=== PATIENT | female | born 1990 | race Caucasian/White ===

== ENCOUNTER 2017-09-06 08:30 | Emergency (ER) | payer MEDICAID, SELFPAY ==
[2017-09-06 08:32] VITALS: BP 120/71; PULSE 99; RESP 17; TEMP 36.9; O2SAT 98; BMI 30.7
--- NOTE | 2017-09-06 08:43 | CT_ITS ---
STUDY: CT ABDOMEN AND PELVIS WITHOUT CONTRAST REASON FOR EXAM: Female, 27 years old. Right upper quadrant pain. RADIATION DOSAGE (If Supplied By Facility): CTDIvol = ( 10.25 ) mGy, DLP = ( 532.52 ) mGycm TECHNIQUE: Transaxial images were obtained from the dome of the diaphragm to the symphysis pubis without oral contrast, and without intravenous contrast. Sagittal and coronal images were reconstructed. Individualized dose optimization techniques were used for this CT. COMPARISON: None. FINDINGS: The visualized lung bases are unremarkable. The visualized portions of the heart are within normal limits. Normal liver. Dependent increased layering density in the gallbladder raises question of sludge. Normal spleen. Normal pancreas. Normal bilateral adrenal glands. Normal right kidney. Normal left kidney. No hydronephrosis. The stomach is filled with undigested food stuffs. Normal small intestine. Normal colon. The appendix is visualized and appears normal. Normal abdominal aorta. Normal inferior vena cava. Normal retroperitoneum. Normal urinary bladder. There is a T-shaped intrauterine device in the endometrial cavity of the normal-sized retroverted uterus. Mild heterogeneity in the adnexa consistent with normal follicular cysts. There is a small umbilical hernia containing fat. There are mild multilevel degenerative changes of the visualized spine. Degenerative sclerosis seen along the inferior right sacroiliac joint. CT/Abdomen/Pelvis without Cont IMPRESSION: 1. Question of sludge in the gallbladder. If suspicious, this can be further characterized with ultrasound. No sign of cholecystitis or overt bile duct obstruction. 2. The bowel is unremarkable without sign of obstruction. The appendix is normal. 3. No hydronephrosis. 4. T-shaped IUD in the endometrial cavity of the normal size, retroverted uterus. Unremarkable ovaries. 5. Small, fat-containing umbilical hernia. Electronically Signed: Eleazar Sommer MD at 10:33 EST , Service support ,
--- NOTE | 2017-09-06 08:50 | ED.VISSUMM ---
- ER Visit Summary Date of Service: 09/06/17 Chief Complaint: [] Abdominal pain for a few days 3 months History of Present Illness: The patient is a 27 F [] today began having upper abdominal pain just after breakfast it resolved spontaneously, and again after having a salad for lunch she had upper abdominal pain that radiated to her right subcostal margin. This morning after eating a small peanut butter sandwich she again experienced immediate onset of upper abdominal pain causing her to vomit and she came in for evaluation. The pain is now resolved. It usually resolved after short period of time. She has no history of ulcer, hepatobiliary disorder or any GI elements. Her and delivery were uncomplicated she has no history of CO PE or DVT she denies chest pain or shortness of breath leg swelling she basically is active and when she is not having pain able to go about her normal activities without any difficulty of any kind of, the patient does report she has had this type of pain in the past very infrequently Physical Examination: [] Signs are normal she is resting cupping the bed she assures me she has no pain she is here with her and her 3-month-old child her HEENT neck exam normal lungs clear heart tones normal abdomen soft nontender she points to the epigastric area indicates the pain radiates around her right subcostal margin when she gets it but she has no pain now, but basically aggressive palpation of her abdomen shaking her abdomen reveals no pain her extremities are normal without signs clubbing or edema neurologic she is awake moving all 4 Test Results: [] Emergency Department Course and Treatment: [] She indicates the symptoms are related to eating she does not really have the pain when she does not eat, today the issue was after eating a small amount of food she began vomiting and she came in for evaluation she again has no real history there is nothing on physical exam or history to suggest CO PE DVT, given all the above a comprehensive evaluation will be pursued Labs are generally unremarkable see those reports except the hepatic panel shows slight elevation of liver enzymes, CT abdomen shows likely sludge in the gallbladder nothing else acute CBC unremarkable,, see the full lab panel Sent for ultrasound of the abdomen per radiology there appears to be's gallstones and sludge in the gallbladder there is no signs of acute cholecystitis on imaging or common bile duct stone obstruction or dilatation, see those reports, the patient has taking p.o. liquids here Serum viral hepatitis screen been sent it is not a stat return patient instructed to have that checked by her follow-up physicians All the test results to her the concept of biliary colic cholecystitis etc. 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 It may contain incorrect words, spelling, and punctuation that were not noted in review of the chart prior to signing ED Disposition - Plan for ED Patient: Chief Complaint: Abd Pain Instructions: ED Abdominal Pain Gallstone Poss Referrals: Tao Doyle MD [STAFF PHYSICIAN] - Pete Branham MD [STAFF PHYSICIAN] - Care Physician,No Primary [Primary Care Provider] -
--- NOTE | 2017-09-06 08:53 | ED.DCSUM_ITS ---
- ER Visit Summary Date of Service: 09/06/17 Chief Complaint: [] Abdominal pain for a few days 3 months History of Present Illness: The patient is a 27 F [] today began having upper abdominal pain just after breakfast it resolved spontaneously, and again after having a salad for lunch she had upper abdominal pain that radiated to her right subcostal margin. This morning after eating a small peanut butter sandwich she again experienced immediate onset of upper abdominal pain causing her to vomit and she came in for evaluation. The pain is now resolved. It usually resolved after short period of time. She has no history of ulcer, hepatobiliary disorder or any GI elements. Her and delivery were uncomplicated she has no history of NV PE or DVT she denies chest pain or shortness of breath leg swelling she basically is active and when she is not having pain able to go about her normal activities without any difficulty of any kind of, the patient does report she has had this type of pain in the past very infrequently Physical Examination: [] Signs are normal she is resting cupping the bed she assures me she has no pain she is here with her and her 3-month-old child her HEENT neck exam normal lungs clear heart tones normal abdomen soft nontender she points to the epigastric area indicates the pain radiates around her right subcostal margin when she gets it but she has no pain now, but basically aggressive palpation of her abdomen shaking her abdomen reveals no pain her extremities are normal without signs clubbing or edema neurologic she is awake moving all 4 Test Results: [] Emergency Department Course and Treatment: [] She indicates the symptoms are related to eating she does not really have the pain when she does not eat, today the issue was after eating a small amount of food she began vomiting and she came in for evaluation she again has no real history there is nothing on physical exam or history to suggest NV PE DVT, given all the above a comprehensive evaluation will be pursued Labs are generally unremarkable see those reports except the hepatic panel shows slight elevation of liver enzymes, CT abdomen shows likely sludge in the gallbladder nothing else acute CBC unremarkable,, see the full lab panel Sent for ultrasound of the abdomen per radiology there appears to be's gallstones and sludge in the gallbladder there is no signs of acute cholecystitis on imaging or common bile duct stone obstruction or dilatation, see those reports, the patient has taking p.o. liquids here Serum viral hepatitis screen been sent it is not a stat return patient instructed to have that checked by her follow-up physicians All the test results to her the concept of biliary colic cholecystitis etc. 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 It may contain incorrect words, spelling, and punctuation that were not noted in review of the chart prior to signing ED Disposition - Plan for ED Patient: Chief Complaint: Abd Pain Instructions: ED Abdominal Pain Gallstone Poss Referrals: Tao Doyle MD [STAFF PHYSICIAN] - Pete Branham MD [STAFF PHYSICIAN] - Care Physician,No Primary [Primary Care Provider] -
[2017-09-06] MEDS: 0.9% Normal Saline 1,000 ML 125 ML IV (08:58)
[2017-09-06 09:13] LABS: Absolute Lymphocyte Count 1.09 X10^3/ul (0.83-4.51); Absolute Neutrophil Count 3.6 X10^3/uL (2.0-7.7); Basophil# 0.05 X10^3/uL; Eosinophil# 0.06 X10^3/uL; Eosinophils% 1.2 % (0-5); Hematocrit 40.2 % (37-47); Hemoglobin 13.9 g/dl (12.0-15.0); Lymphocyte # 1.09 X10^3/ul (4.0); Lymphocyte % 21.1 % (19-41); Mean Corp Hgb Conc 34.6 g/gl (32-36); Mean Corpuscular Hgb 31.2 pg (27.0-32.0); Mean Corpuscular Volume 90.3 fL (81-99); Mean Platelet Vol. 10.7 fl (6.2-12.0); Monocyte# 0.33 X10^3/uL; Monocyte% 6.4 % (0-10); Neutrophil # 3.63 X10^3/uL (2.7-7.7); Neutrophil % 70.1 % (47-70); Platelet Count 294 K/mm3 (150-450); RBC Distribution Width CV 12.2 % (11.6-14.6); RBC Distribution Width SD 39.5 fl (35.1-43.9); Red Blood Count 4.45 M/mm3 (4.2-5.4); White Blood Count 5.2 K/mm3 (4.4-11.0)
[2017-09-06 09:14] LABS: POSITIVE COUNT NO; POSITIVE DIFFERENTIAL NO; POSITIVE MORPHOLOGY NO
[2017-09-06 09:21] LABS: AST(SGOT) 143 U/L (15-37); Alanine Aminotransfer ALT/SGPT 192 U/L (13-56); Alkaline Phosphatase 166 U/L (45-117); Anion Gap 9 (5-15); BUN 17 mg/dL (7-18); BUN/Creat Ratio 16.5 RATIO (10-20); Bilirubin, Direct 0.34 mg/dL (0.00-0.30); Calcium,Total 9.3 mg/dL (8.5-10.1); Chloride 103 mmol/L (98-107); Creatinine, Serum 1.03 mg/dL (0.55-1.02); EST Glomerular Filtration Rate 69 mL/min (>60); Est Glom Filt Rate - Afr Amer 83 mL/min (>60); Estimated Creatinine Clearance 77.48 ml/min; Globulin 4.6 g/dL (2.2-4.2); Glucose 118 mg/dL (74-106); Lipase 217 U/L (73-393); Potassium 3.7 mmol/L (3.5-5.1); Protein, Total 8.6 g/dL (6.4-8.2); Sodium Level 138 mmol/L (136-145)
[2017-09-06 09:24] LABS: Pregnancy, Serum, hCG Quali. NEGATIVE Negative (0-9 Nonpreg)
[2017-09-06 11:00] LABS: Bacteria 0 SEEN /hpf (None Seen); Mucous, Urine 0 SEEN /hpf (<or=2+); Squamous Epithelial Cells - UA 0 SEEN /hpf (5-10)
[2017-09-06 11:05] LABS: Color, Urine Yellow (Yellow); Glucose, Dipstick Normal (Normal); Ketone-Dipstick Negative (Negative); Leukocyte Esterase-Dipstick 100 /ul (Negative); Nitrite-Dipstick Negative (Negative); Occult Blood-Urine 10 /ul (Negative); Protein-Dipstick Negative (Negative); Urine Bilirubin Dipstick Negative (Negative); Urine Clarity Clear (Clear); Urine Urobilinogen Normal (Normal)
[2017-09-06 11:12] LABS: Red Blood Cells-Urine 0-5 SEEN /hpf (0-5); White Blood Cells 0-5 SEEN /hpf (0-5)
--- NOTE | 2017-09-06 11:38 | US_ITS ---
STUDY: ABDOMINAL ULTRASOUND - RIGHT UPPER QUADRANT REASON FOR VISIT: Female, 27 years old. Right upper quadrant pain. TECHNIQUE: Ultrasound evaluation of the right upper quadrant was performed with real-time and static rucker-scale imaging. TECHNICAL QUALITY: Adequate. Examination limited by bowel gas. COMPARISON: CT abdomen and pelvis 0929 hours. FINDINGS: Liver: The liver measures 14.0-18.0 cm, depending on point of reference There is normal echogenicity of the liver. The bile ducts are within normal limits. There is hepatic color flow. The direction of portal flow is hepatopetal. There is no demonstrated mass lesion. Gallbladder: Normal distended gallbladder. The gallbladder wall measures 1.3 mm. There is a negative sonographic Barrett's sign. There is no pericholecystic fluid. There are multiple echogenic structures within the gallbladder, consistent with multiple gallstones. Additional echogenic sludge is also present. Common Bile Duct (C.B.D.): The common bile duct measures 4.6 mm. Pancreas: Normal size of the head, body and tail of the pancreas. There is normal echogenicity of the pancreas. There is no demonstrated pancreatic mass or cyst. Right Kidney: Normal size of the right kidney. The right kidney measures 10.9 x 5.3 x 3.8 cm. Normal renal cortex. The right cortex measures 1.3 cm. There is no demonstrated renal mass or cyst. There is no right hydronephrosis. US/Gallbladder IMPRESSION: Numerous small gallstones as well as sludge in the gallbladder lumen. No sign of acute cholecystitis or bile duct obstruction. Electronically Signed: Eleazar Sommer MD at 14:19 EST , Service support ,
[2017-09-06 11:50] VITALS: BP 120/85; PULSE 73; RESP 16; O2SAT 97
--- NOTE | 2017-09-06 14:37 | ED.DEP ---
ED Disposition - Plan for ED Patient: Chief Complaint: Abd Pain Instructions: ED Abdominal Pain Gallstone Poss Referrals: Care Physician,No Primary [Primary Care Provider] - Pete Branham MD [STAFF PHYSICIAN] - Tao Doyle MD [STAFF PHYSICIAN] -
[2017-09-06 15:03] VITALS: BP 110/73; PULSE 87; RESP 18; O2SAT 100
[2017-09-07 08:08] LABS: HEPATITIS B SURFACE AG Negative (Negative); Hepatitis A IgM Antibody Negative (Negative); Hepatitis B Core AB IgM Negative (Negative)
[2017-09-07 11:13] LABS: Hep C Antibodies 0.1 s/co ratio (0.0-0.9)
== END 2017-09-06 15:04 | disposition home or self-care (01) ==
LOC: ED 09:06
PROVIDERS: Emergency Provider Emergency Medicine
DX: K80.80 Other cholelithiasis without obstruction (principal)
CPT/HCPCS: 74176; 76705; 80048; 80074; 80076; 81001; 83690; 84703; 85025; 96360; 96361; 99284; J7030; A4216; J2405

== ENCOUNTER 2017-09-12 10:47 | Day surgery (SDC) | payer MEDICAID, SELFPAY ==
[2017-09-12] VITALS (9 sets, daily range): BP systolic 101–112; BP diastolic 64–76; PULSE 51–73; RESP 14–20; TEMP 36.1–36.7; O2SAT 94–100; BMI 29.8
--- NOTE | 2017-09-12 | GALL_PTH ---
PATIENT: KEENA OLIVERA LOC: [facility] [place] U#:[id number] AGE/SX: 27/F ROOM: RE09/12/[address]: Dr. Tao Doyle MD : 1990 BED: DIS: 09/12/2017 SPEC #: [id number] RECD: 09/12/17 15:10 STATUS: [place] WILLIS #: [id number] [place]: 09/12/17 00:[address]: Tao Doyle DEPT: SURGICAL PATHOLOGY RECD BY: Tra Olmstead ENTERED: 09/12/17 15:10 SP TYPE: NELLIE VÁZQUEZ DR: No Primary Care Phys Tissues: Gallbladder, NOS Procedures: Surgery Specimen Level III HEADER OPERATION: Laparoscopic cholecystectomy with intraoperative cholangiogram PRE-OP DIAGNOSIS: Calculus of gallbladder with chronic cholecystitis TISSUE SUBMITTED: Gallbladder MICROSCOPIC DIAGNOSIS Gallbladder: Mild chronic cholecystitis and cholelithiasis. SJ:terrence 09/15/17 MICROSCOPIC DESCRIPTION Slides are reviewed. GROSS DESCRIPTION Received is one container labeled with the patient's name and designated gallbladder. The specimen consists of a gallbladder measuring 8 cm in length and up to 2.5 cm in diameter. The external surface is pink-singer, smooth and glistening for the most part. Focally it is granular, hemorrhagic and contains cautery artifact. The gallbladder contains green-yellow mucoid bile and multiple yellow-orange mulberry stones measuring in aggregate 3.5 x 3 x 0.5 cm and 0.1 to 0.3 cm in greatest dimension. The mucosa is bile-stained and without any mass lesions. The gallbladder wall measures up to 0.2 cm in thickness. Special Effects Person sections from the gallbladder and the cystic duct are submitted in one cassette. / SJ:terrence 09/12/17 TC:3 CPT: 77082
--- NOTE | 2017-09-12 10:56 | EKG12_ITS ---
Test Reason : PREOP Blood Pressure : / mmHG Vent. Rate : 068 BPM Atrial Rate : 068 BPM P-R Int : 174 ms QRS Dur : 094 ms QT Int : 404 ms P-R-T Axes : 057 069 053 degrees QTc Int : 429 ms Normal sinus rhythm Normal ECG No previous ECGs available Confirmed by BOLA CLEANING ([id number]), video editor TOMEKA VARGAS ([id number]) on 09/16/2017 1:53:49 PM Referred By: Bola Doyle Confirmed By:BOLA CLEANING
[2017-09-12 11:14] LABS: Internal QC Validated? YES +Cl - CLEAR BKGD
[2017-09-12 11:17] LABS: Pregnancy, Urine Negative Negative
[2017-09-12] MEDS: Cefazolin 2 GM in 0.9% Normal Saline 100 ML IV (12:43)
--- NOTE | 2017-09-12 12:48 | DCINST_ITS ---
Discharge Diet: Light diet - advance as tolerated Discharge Activity: May Not Drive - for 2-3 days or while taking narcotic pain medications., - - Do not drive, work heavy equipment or sign legal documents for 24 hours. May shower in (days): 1 - with the bandage in place. Additional Activity Instructions:: Pain medication may cause nausea. You should typically eat light foods as you take your pain medications. Pain medication may also cause constipation. If this is a problem for you, please discuss with your doctor. Call your doctor if your incision/area has: Continuous Slow Oozing, Sudden Increased Bleeding, Increased Pain/ Swelling, Increased Redness, Foul Smelling Discharge Call your doctor if you observe: Fever of 101 or Higher Suture Line Care: Avoid Pulling/Pushing, Avoid Pinching/Bending Additional Dressing/Incision Instructions:: Leave operative bandaids on for 2 days. When you remove dressing, leave Steri-Strips on until your follow-up appointment, or until the Steri-Strips fall off on their own. Allergies/Adverse Reactions: Allergies No Known Allergies Allergy (Verified 09/11/17 14:10) Medications to take at Discharge Vits [Prenatabs FA] 1 tab PO DAILY 04/18/15 Oxycodone HCl/Acetaminophen [Percocet 5/325] 1 - 2 tab PO Q4H PRN PRN 4 Days # 30 tab 09/12/17 The following prescriptions were given: Oxycodone HCl/Acetaminophen [Percocet 5/325] 1 - 2 tab PO Q4H PRN PRN 4 Days # 30 tab PRN Reason: Pain Primary Care Physician: Care Physician,No Primary [Primary Care Provider] - Please Follow Up With: Tao Doyle MD - Please call [phone] to schedule an appointment. When: 7 days after your surgery.
--- NOTE | 2017-09-12 12:48 | PCM.OPRPT ---
Problem List (1) Calculus of gallbladder with acute on chronic cholecystitis without obstruction Status: Acute Report of Operation Date of Procedure: 09/12/17 Pre-Operative Diagnosis: K80.12 calculus of the gallbladder with acute on chronic cholecystitis without obstruction Post-Operative Diagnosis: Same Surgery/Procedure Performed:: 36730 laparoscopic cholecystectomy with intraoperative cholangiograms Type of Anesthesia:: General Anesthesiologist: Perico Nuñez Description of Procedure: Patient was brought into the operating room and placed in the supine position. Under excellent endotracheal intubation the abdomen was sterilely prepped and draped in usual fashion. Local was injected infraumbilically and incision was made and was carried down to the fascia the fascia was grasped with a [place] varies needle was placed inside the abdomen. The abdomen was insufflated 15 torr. A 1012 trocar was placed without difficulty. Patient was placed in the head up and rotated to the left position. Fundus of the gallbladder was grasped retracted in a cephalad direction. Electrocautery was used to take down adhesions. I dissected out the cystic duct. I placed a Hemoclip proximally on the duct and aubrey the duct. A cholangiogram catheter was placed through the skin and a clean gram catheter was placed into the cystic duct and secured with a clip. A cholangiogram was performed showing normal ductal anatomy. I remove the glans gram catheter placed another locking clip on to the cystic duct and ligated the duct. Cystic artery was identified clips were placed proximally and distally and ligated. I deliver the gallbladder from the gallbladder bed with use of electrocautery had no spillage of bile or stones. I placed a specimen a specimen bag and delivered through the umbilical port without difficulty. I remove the trochars under direct visualization good hemostasis was noted I closed the fascia the umbilical port with a figure 8 stitch of 0 Vicryl. Skin incisions were closed with subcuticular stitches of 4-0 Monocryl. Steri-Strips are applied sterile dressings were applied and the patient tolerated the procedure well. - Admit VTE Documentation VTE Present on Admission: No VTE Mechan Device Prophylaxis: SCD's VTE Pharm Prophylaxis ordered?: No Reason prophylaxis not ordered:: Treatment Not Indicated
[2017-09-12] MEDS: Bupivacaine 0.25% 30 ML Vial (12:54)
--- NOTE | 2017-09-12 13:05 | RAD_ITS ---
STUDY: INTRAOPERATIVE CHOLANGIOGRAM. REASON FOR EXAM: Female, 27 years old. Laparoscopic cholecystectomy. FLUOROSCOPY TIME (if supplied): (0:16) minutes/seconds TECHNIQUE: An intraoperative cholangiogram was performed by the surgeon. Imaging was submitted. COMPARISON: None. FINDINGS: The common bile duct is unremarkable. No intraluminal filling defect is seen. There is free flow of contrast into the duodenum. RAD/Cholangiogram/ O R,Initial IMPRESSION: Unremarkable intraoperative cholangiogram. Electronically Signed: Jeramy Workman MD at 14:28 EST Tel [phone], Service support ,
== END 2017-09-12 17:14 | disposition home or self-care (01) ==
LOC: SDC 10:48 → AC 10:49
PROVIDERS: Anesthesiology; Visit Provider Surgery
PROC: (CPT 47610; principal; 2017-09-12 12:45)
DX: K80.12 Calculus of gallbladder with acute and chronic cholecystitis without obstruction (principal); K82.8 Other specified diseases of gallbladder
CPT/HCPCS: 47563; 74300; 76000; 81025; 88304; 93005; J7120; J1610; J2405

== ENCOUNTER → 2018-08-11 17:10 | Outpatient (CLI) | payer MEDICAID, SELFPAY ==
[2017-09-12 11:06] VITALS: BMI 29.8
[2018-08-14 11:41] LABS: HPV Reflexed? NOT INDICATED
--- OUTSIDE RECORDS SUMMARY | 2018-10-13 23:12 | XMS RPT_ITS ---
:1990 Author Organization OHIP Support Name Relationship Address Phone [facility] Unavailable [address] [place] [address] + [place] [address] SHAQUILLE, MICHELLE Unavailable . + [place] [address] UE Unavailable Unavailable Unavailable [facility] Unavailable [address] [place] [address] + [place] [address] SHAQUILLE, MICHELLE Unavailable . + [place] [address] UE Unavailable Unavailable Unavailable [facility] Unavailable [address] [place] [address] + [place] [address] SHAQUILLE, MICHELLE Unavailable Unavailable + UE Unavailable Unavailable Unavailable [facility] Unavailable [address] [place] [address] + [place] [address] SHAQUILLE, MICHELLE Unavailable . + [place] [address] UE Unavailable Unavailable Unavailable [facility] Unavailable [address] [place] [address] ROAD + [place] [address] SHAQUILLE, MICHELLE Unavailable . + [place] [address] UE Unavailable Unavailable Unavailable [facility] Unavailable [address] [place] [address] + [place] [address] SHAQUILLE, MICHELLE Unavailable . + . ., [place] . UE Unavailable Unavailable Unavailable [facility] OLI[facility] Unavailable [address] [place] [address] ROAD + [place] [address] SHAQUILLE, MICHELLE Unavailable . + . ., . . UE Unavailable Unavailable Unavailable Care Team Providers Name Role Phone Natalie Watkins Attending Unavailable Primay Care Physicia, No Primary Care Unavailable Tao Cleaning Attending Unavailable Tao Doyle Referring Unavailable Tao Doyle Attending Unavailable Krystyna Bocanegra PA-C Attending Unavailable Primay Care Physicia, No Referring Unavailable Primay Care Physicia, No Primary Care Unavailable Tao Doyle Attending Unavailable Primay Care Physicia, No Referring Unavailable Primay Care Physicia, No Primary Care Unavailable Gabrielle Espinoza Attending Unavailable Primay Care Physicia, No Primary Care Unavailable Tao Doyle Attending Unavailable Primay Care Physicia, No Primary Care Unavailable Tao Doyle Referring Unavailable PROBLEMS PROBLEMS DATE TYPE CONDITION / CODE ATTENDING STATUS SOURCE 08/11/2018 Unknown Z12.4 - Encounter Natalie Watkins Active Karin for screening for [facility] malignant neoplasm Hospital of cervix / Repository Z12.4(ICD-10) 09/25/2017 Unknown K80.12 - Calculus Tao Doyle Active Karin of gallbladder with [facility] acute and chronic [facility] cholecystitis Repository without obstruction / K80.12(ICD-10) PROCEDURES PROCEDURES No Procedure Records FoundRESULTS RESULTS PAP I-G W/RFX HRHPV Collected: 08/11/2018 Status: F Source: KARIN 1:15 PM [facility] REPOSITORY Order Comment: CYTOLOGY INFORMATION: - CLINICAL INFORMATION: - DATE LMP/MENOPAUSE: 08/08/18/MIRENA LMP - COLLECTION VIAL: Thin Prep Vial - DRAIN TECHNICIAN SOURCE: CERVICAL/ENDOCERVICAL - COLLECTION TECHNIQUE: BRUSH/SPATULA Specimen Comment: [id number] Specimen Comment: Source.............Endocervix Specimen Comment: LMP / Prev Treat...[id number] Specimen Comment: Dates / Results....MIRENA Specimen Comment: No. of containers..01 ThinPrep Vial TYPE CODE TESTS RESULT OUT OF RANGE REFERENCE UNITS LAB L7400.0800 . Normal DIAGN Comment Result Comment: NEGATIVE FOR INTRAEPITHELIAL LESION OR MALIGNANCY. LAB L7400.0900 . Normal ADEQ Comment Result Comment: Satisfactory for evaluation. Endocervical and/or squamous metaplastic cells (endocervical component) are present. LAB L7400.1400 . Normal PERFORM Comment Result Comment: Susan Wolfe, Interface Designer (ASCP) LAB L7400.2575 . Normal TEST METHOD Comment Result Comment: This liquid based ThinPrep(R) pap test was screened with the use of an image guided system. LAB L7400.2600 . Normal . COMM LAB L7400.2700 . Normal PAPSMR Comment Result Comment: The Pap smear is a screening test designed to aid in the detection of premalignant and malignant conditions of the uterine cervix. It is not a diagnostic procedure and should not be used as the sole means of detecting cervical cancer. Both false-positive and false-negative reports do occur. LAB L7400.2800 . Normal HPV RFLX Comment Result Comment: The HPV DNA reflex criteria were not met with this specimen result therefore, no HPV testing was performed. Performed at: - [facility] [id number] Home Health Care Physician: Farida Calvin MD, Phone: [phone] Performed By: #### L7400.0350 #### [facility] (refer to report for specific site) refer to report for address and phone number SURGERY VISIT REPORT Observed: 09/22/2017 Status: F Source: CAB[place]O 3:49 PM [facility] [address] [place] [address] OFFICE VISIT Date of Service: 09/22/17 MR#: [id number] Acct: [id number] Name: JASMIN OLIVERA Rep #: [id number] : 1990 Provider: Krystyna Bocanegra PA-C Age/Sex: 27/F Location: [facility] Status: Signed Intake Intake Visit Reasons: Gall bladder surgery 09/12 DP Chief Complaint: post lance DP 09-12 Pipelines Supervisor Required: No Is patient in pain?: No Allergies No Known Allergies Allergy (Verified 09/22/17 10:42) Medications Vits [Prenatabs FA] 1 tab PO DAILY 04/18/15 [History Confirmed 09/22/17] Is last menstrual period known: No Post menopausal: No Patient : No PFSH Medical History Gallstones (Acute) RUQ pain (Acute) Surgical History S/P laparoscopic cholecystectomy (Acute) Family History Mother Cancer cervical Social History Smoking Status: Never smoker alcohol intake: never HPI HPI HPI: JASMIN OLIVERA, is a 27 F I am following for cholelithiasis. Dr. Doyle performed a laparoscopic cholecystectomy on 09/12/17. Patient tolerated the procedure well. Pathology demonstrated mild chronic cholecystitis and cholelithiasis. Patient denies abdominal pain/discomfort, nausea, vomiting. Her appetite has returned to normal. She is having normal bowel movements. Exam GI Inspection: normal to inspection, incision (c/d/i) Palpation: soft Auscultation: normal bowel sounds Assessment AND Plan Problems 1. Calculus of gallbladder with acute on chronic cholecystitis without obstruction K80.12 Plan - Recommend no lifting greater than 35 pounds for 3 weeks - Follow-up as needed Coding Level of Care Code Global Post Op Diagnoses Calculus of gallbladder with acute on chronic cholecystitis without obstruction K80.12 09/22/17 1549 <Electronically signed by Krystyna Bocanegra PA-C> Date Krystyna Bocanegra PA-C Cosigner Signature: Date (if applicable) CC: 12 LEAD ELECTROCARDIOGRAM Observed: 09/16/2017 Status: F Source: [place] 1:53 PM [facility] REPOSITORY [facility] Cardiovascular Services [address] [place] [address] 12 Lead EKG 09/12/17 1116 MR#: [id number] Acct: [id number] Name: JASMIN LOIVERA Rep #: [id number] : 1990 27 From: Tao Cleaning MD Attending Dr: Tao Doyle MD Status: DEP [facility] Ordering Dr: Perico Nuñez MD Date: 09/12/17 Location: [facility] Sex: F C Admitted: Test Reason : PREOP Blood Pressure : / mmHG Vent. Rate : 068 BPM Atrial Rate : 068 BPM P-R Int : 174 ms QRS Dur : 094 ms QT Int : 404 ms P-R-T Axes : 057 069 053 degrees QTc Int : 429 ms Normal sinus rhythm Normal ECG No previous ECGs available Confirmed by TAO CLEANING ([id number]), material expeditor TOMEKA VARGAS ([id number]) on 09/16/2017 1:53:49 PM Referred By: Tao Doyle Confirmed By:TAO CLEANING 09/16/17 1353 Date Tao Cleaning MD CC: No Primary Care Physician; Perico Nuñez MD Signed OPERATIVE REPORT Observed: 09/12/2017 Status: F Source: [place] 1:30 PM [facility] REPOSITORY [facility] Medical Records Department [address] [place] [address] Operative Report 09/12/17 1248 MR#: [id number] Acct: [id number] Name: JASMIN OLIVERA Rep #: [id number] : 1990 27 From: Tao Doyle MD PCP: Care Physician, No Primary Status: [facility] Y Location: [place] [address] Problem List (1) Calculus of gallbladder with acute on chronic cholecystitis without obstruction Status: Acute Report of Operation Date of Procedure: 09/12/17 Pre-Operative Diagnosis: K80.12 calculus of the gallbladder with acute on chronic cholecystitis without obstruction Post-Operative Diagnosis: Same Surgery/Procedure Performed:: 62248 laparoscopic cholecystectomy with intraoperative cholangiograms Type of Anesthesia:: General Anesthesiologist: Perico Nuñez Description of Procedure: Patient was brought into the operating room and placed in the supine position. Under excellent endotracheal intubation the abdomen was sterilely prepped and draped in usual fashion. Local was injected infraumbilically and incision was made and was carried down to the fascia the fascia was grasped with a Yovany varies needle was placed inside the abdomen. The abdomen was insufflated 15 torr. A 1012 trocar was placed without difficulty. Patient was placed in the head up and rotated to the left position. Fundus of the gallbladder was grasped retracted in a cephalad direction. Electrocautery was used to take down adhesions. I dissected out the cystic duct. I placed a Hemoclip proximally on the duct and aubrey the duct. A cholangiogram catheter was placed through the skin and a clean gram catheter was placed into the cystic duct and secured with a clip. A cholangiogram was performed showing normal ductal anatomy. I remove the glans gram catheter placed another locking clip on to the cystic duct and ligated the duct. Cystic artery was identified clips were placed proximally and distally and ligated. I deliver the gallbladder from the gallbladder bed with use of electrocautery had no spillage of bile or stones. I placed a specimen a specimen bag and delivered through the umbilical port without difficulty. I remove the trochars under direct visualization good hemostasis was noted I closed the fascia the umbilical port with a figure 8 stitch of 0 Vicryl. Skin incisions were closed with subcuticular stitches of 4-0 Monocryl. Steri- Strips are applied sterile dressings were applied and the patient tolerated the procedure well. - Admit VTE Documentation VTE Present on Admission: No VTE Mechan Device Prophylaxis: SCD's VTE Pharm Prophylaxis ordered?: No Reason prophylaxis not ordered:: Treatment Not Indicated 09/12/17 1330 <Electronically signed by Tao Doyle MD> Date Tao Doyle MD CC: No Primary Care Physician; Tao Doyle MD; Natalie Watkins MD Signed DISCHARGE INSTRUCTION Observed: 09/12/2017 Status: F Source: [place] 12:48 PM [facility] REPOSITORY [facility] Medical Records Department [address] [place] [address] Instructions for Home/Discharge Instructions 09/12/17 1247 MR#: [id number] Acct: [id number] Name: JASMIN OLIVERA Rep #: [id number] : 1990 27 From: Tao Doyle MD PCP: Care Physician, No Primary Status: REG [facility] Discharge Diet: Light diet - advance as tolerated Discharge Activity: May Not Drive - for 2-3 days or while taking narcotic pain medications., - - Do not drive, work heavy equipment or sign legal documents for 24 hours. May shower in (days): 1 - with the bandage in place. Additional Activity Instructions:: Pain medication may cause nausea. You should typically eat light foods as you take your pain medications. Pain medication may also cause constipation. If this is a problem for you, please discuss with your doctor. Call your doctor if your incision/area has: Continuous Slow Oozing, Sudden Increased Bleeding, Increased Pain/ Swelling, Increased Redness, Foul Smelling Discharge Call your doctor if you observe: Fever of 101 or Higher Suture Line Care: Avoid Pulling/Pushing, Avoid Pinching/Bending Additional Dressing/Incision Instructions:: Leave operative bandaids on for 2 days. When you remove dressing, leave Steri-Strips on until your follow-up appointment, or until the Steri-Strips fall off on their own. Allergies/Adverse Reactions: Allergies No Known Allergies Allergy (Verified 09/11/17 14:10) Medications to take at Discharge Vits [Prenatabs FA] 1 tab PO DAILY 04/18/15 Oxycodone HCl/Acetaminophen [Percocet 5/325] 1 - 2 tab PO Q4H PRN PRN 4 Days #30 tab 09/12/17 The following prescriptions were given: Oxycodone HCl/Acetaminophen [Percocet 5/325] 1 - 2 tab PO Q4H PRN PRN 4 Days #30 tab PRN Reason: Pain Primary Care Physician: Care Physician,No Primary [Primary Care Provider] - Please Follow Up With: Tao Doyle MD - Please call [phone] to schedule an appointment. When: 7 days after your surgery. 09/12/17 1248 <Electronically signed by Tao Doyle MD> Date Tao Doyle MD CC: No Primary Care Physician CHOLANGIOGRAM/ O Observed: 09/12/2017 Status: F Source: KARIN R,INITIAL 11:29 AM [facility] REPOSITORY [facility] Imaging Services [address] [place] [address] Cholangiogram/ O R,Initial MR#: [id number] Acct: [id number] Name: JASMIN OLIVERA Rep #: [id number] : 1990 F 27 From: Jeramy Workman MD PCP: Care Physician, No Primary Status: [facility] Study: Cholangiogram/ O R,Initial Date of Exam: 09/12/17 Exam# [id number] Ordering Dr: Tao Doyle MD STUDY: INTRAOPERATIVE CHOLANGIOGRAM. REASON FOR EXAM: Female, 27 years old. Laparoscopic cholecystectomy. FLUOROSCOPY TIME (if supplied): (0:16) minutes/seconds TECHNIQUE: An intraoperative cholangiogram was performed by the surgeon. Imaging was submitted. COMPARISON: None. FINDINGS: The common bile duct is unremarkable. No intraluminal filling defect is seen. There is free flow of contrast into the duodenum. RAD/Cholangiogram/ O R,Initial IMPRESSION: Unremarkable intraoperative cholangiogram. Electronically Signed: Jeramy Workman MD at 14:28 EST Tel [phone], Service support , CC: No Primary Care Physician; Tao Doyle MD Graphics Edit Technician: Signed ,URINE Collected: 09/12/2017 Status: F Source: CAB[place]O 12:00 AM [facility] REPOSITORY TYPE CODE TESTS RESULT OUT OF REFERENCE UNITS RANGE LAB L400.8000 Negative Normal HCGUQUAL Negative Result Comment: Very dilute urine specimens, as indicated by a low specific gravity, may not contain bottling equipment sales representative levels of hCG. If is still suspected, a first morning urine specimen should be collected 48 hours later and tested. Performed By: #### L400.7600 #### [facility] [address] [place], [address] GALLBLADDER Observed: 09/12/2017 Status: F Source: CAB[place]O 12:00 AM [facility] REPOSITORY Patient: JASMIN OLIVERA : 1990 (27/) Acct Num: [id number] Phys: Tao Doyle MD Unit Num: [id number] Loc: [facility] Specimen: [id number] Received: 09/12/17 - 1510 Spec Type: GALLBLADDE TISSUES TISSUES: Gallbladder, NOS GROSS DESCRIPTION Received is one container labeled with the patient's name and designated gallbladder. The specimen consists of a gallbladder measuring 8 cm in length and up to 2.5 cm in diameter. The external surface is pink- singer, smooth and glistening for the most part. Focally it is granular, hemorrhagic and contains cautery artifact. The gallbladder contains green-yellow mucoid bile and multiple yellow-orange mulberry stones measuring in aggregate 3.5 x 3 x 0.5 cm and 0.1 to 0.3 cm in greatest dimension. The mucosa is bile- stained and without any mass lesions. The gallbladder wall measures up to 0.2 cm in thickness. Auto Parts Manager sections from the gallbladder and the cystic duct are submitted in one cassette. / AJ:terrence 09/12/17 TC:3 CPT: 80169 HEADER OPERATION: Laparoscopic cholecystectomy with intraoperative cholangiogram PRE-OP DIAGNOSIS: Calculus of gallbladder with chronic cholecystitis TISSUE SUBMITTED: Gallbladder MICROSCOPIC DESCRIPTION Slides are reviewed. MICROSCOPIC DIAGNOSIS Gallbladder: Mild chronic cholecystitis and cholelithiasis. AJ:terrence 09/15/17 Signed Hema Bhatia 09/15/17 <signature on file> Performed By: #### PGALL #### [facility] [address] [place] [address]. [place], [place], [address] SURGERY VISIT REPORT Observed: 09/10/2017 Status: F Source: [place] 2:51 PM [facility] REPOSITORY [facility] [address] [facility] [address] [place] [address] OFFICE VISIT Date of Service: 09/10/17 MR#: [id number] Acct: [id number] Name: JASMIN OLIVERA Rep #: [id number] : 1990 Provider: Tao Doyle MD Age/Sex: 27/F Location: [facility] Status: Signed Intake Vital Signs09/10/17 Height 5 ft 6 in 09/10/17 Weight: 189 lb 09/10/17 Body Mass Index (BMI) 30.4 Intake Visit Reasons: FU ER GALL BLADDERR Pipelines Supervisor Required: No Is patient in pain?: No Allergies No Known Allergies Allergy (Verified 09/10/17 12:57) Medications Vits [Prenatabs FA] 1 tab PO DAILY 04/18/15 [History Confirmed 09/10/17] [facility] Medical History Gallstones (Acute) RUQ pain (Acute) Family History Mother Cancer cervical Social History Smoking Status: Never smoker alcohol intake: never HPI HPI HPI: JASMIN OLIVEAR, is a 27 F who presents to the office today for evaluation of epigastric and right upper quadrant abdominal pain. Patient was seen and was [facility] emergency department on 09/06/2017. She had been noting to have about 3 months history of abdominal pain that got progressively worse over the weekend. Pain is in the epigastric area and radiates into the right upper quadrant. In the emergency department she was worked up noted to have a gallbladder ultrasound which showed gallstones and sludge in the gallbladder no signs of acute cholecystitis or common bile duct obstruction or dilatation. Her laboratory values did show that she had an elevation in her liver function tests in particular her alkaline phosphatase was up to 166 as was her AST and ALT and her total bilirubin was 0.34 we was only slightly elevated her lipase was normal ROS General General: No weight change, appetite, fatigue, colon cancer, breast cancer or weakness HEENT HEENT: No difficulty swallowing, eye injury, eye surgery, swollen glands or hoarseness Endo Endocrine: No thyroid disease, diabetes mellitus, thyroid cancer, Hair loss, heat intolerance or cold intolerance Skin Skin: No rash or changing moles Breast Breast: No left breast lump, right breast lump, nipple discharge, breast pain, abnormal mammogram, abnormal US or breast enlargement Musc Musculoskeletal: No back problems, arthritis, rheumatoid arthritis, gout or joint pain Cardio Cardiovascular: No murmur, pacemaker, heart disease, atrial fibrillation, high blood pressure, heart attack, heart stent, palpitations, shortness of breat with exertion or chest pain Psych Psychiatric: No depression, anxiety or hearing voices Resp Respiratory: No shortness of breath, No sleep apnea, No cough, No COPD, No asthma, No emphysema, No wheezing Gastro Gastrointestinal: Yes abdominal pain, Yes nausea or vomiting, Yes gallbladder problem, No diarrhea, No constipation, No blood in stool, No acid reflux, No hemorrhoids, No ulcers, No black,tarry stools Osmin Hematologic: No blood thinners, No blood disorders, No bleeding, No anemia, No blood clots Neuro Neurologic: No system reviewed and no additional complaints, except as docu, No as per HPI, No abnormal walking, No abnormal hearing, No abnormal movements, No abnormal speech, No behavioral changes, No burning sensations, No confusion, No seizure-like activity, No unsteadiness, No dizziness, No localized weakness, No frequent falls, No headache(s), No lack of coordination, No loss of vision, No memory loss, No numbness, No other visual disturbances, No radiating pain, No restless legs, No sensory deficit, No fainting, No tingling, No tremor(s), No weakness, No other Exam Const General: well developed, no acute distress, well hydrated Orientation: oriented to person, oriented to place, oriented to time [facility] Head: normocephalic, atraumatic Ears: external ears normal Mouth: moist mucous membranes Eyes Sclera: sclerae normal Pupils: normal by confrontation Neck Neck: no lymphadenopathy noted Neck mass: No Thyroid: symmetrical, thyroid normal Chest Chest palpation AND inspection: normal inspection of the chest Breast Palpation: No nipple discharge Resp Effort AND Inspection: normal respiratory effort Auscultation: clear to auscultation bilaterally Percussion: percussion normal Cardio Rate: regular rate Rhythm: regular rhythm Heart Sounds: no murmurs GI Palpation: soft, tender, no masses, no hepatosplenomegaly Auscultation: normal bowel sounds Rectal Exam: other Other: Rectal exam deferred. Extrem General: no clubbing, cyanosis or edema, normal to inspection Assessment AND Plan Problems 1. Calculus of gallbladder with acute on chronic cholecystitis without obstruction K80.12 Plan Reviewed the anatomy with the patient and discussed the procedure: laparoscopic cholecystectomy with possible cholangiograms, possible open. Review risks including but not limited to bleeding, infection, hernia, bile leak, retained gallstones requiring another procedure ERCP- Endoscopic Retrograde Cholangiopancreatography, injury to another organ (bile ducts, common bile duct, small bowel, etc.) and conversion to an open procedure. All questions were answered. Coding Level of Care Code Off vis,new,level 3 Diagnoses Calculus of gallbladder with acute on chronic cholecystitis without obstruction K80.12 Cholelithiasis location: gallbladder Cholecystitis acuity: acute and chronic 09/10/17 1451 <Electronically signed by Tao Doyle MD> Date Tao Doyle MD Cosigner Signature: Date (if applicable) CC: EMERGENCY DEPARTMENT Observed: 09/06/2017 Status: F Source: [place]O SUMMARY 5:55 PM [facility] REPOSITORY [facility] Medical Records Department [address] [place] [address] Emergency Department Summary 09/06/17 0850 MR#: [id number] Acct: [id number] Name: JASMIN OLIVERA Rep #: [id number] : 1990 27 From: Gabrielle Espinoza MD PCP: Care Physician, No Primary Status: DEP ER - ER Visit Summary Date of Service: 09/06/17 Chief Complaint: [] Abdominal pain for a few days 3 months History of Present Illness: The patient is a 27 F [] today began having upper abdominal pain just after breakfast it resolved spontaneously, and again after having a salad for lunch she had upper abdominal pain that radiated to her right subcostal margin. This morning after eating a small peanut butter sandwich she again experienced immediate onset of upper abdominal pain causing her to vomit and she came in for evaluation. The pain is now resolved. It usually resolved after short period of time. She has no history of ulcer, hepatobiliary disorder or any GI elements. Her and delivery were uncomplicated she has no history of DE PE or DVT she denies chest pain or shortness of breath leg swelling she basically is active and when she is not having pain able to go about her normal activities without any difficulty of any kind of, the patient does report she has had this type of pain in the past very infrequently Physical Examination: [] Signs are normal she is resting cupping the bed she assures me she has no pain she is here with her and her 3-month-old child her HEENT neck exam normal lungs clear heart tones normal abdomen soft nontender she points to the epigastric area indicates the pain radiates around her right subcostal margin when she gets it but she has no pain now, but basically aggressive palpation of her abdomen shaking her abdomen reveals no pain her extremities are normal without signs clubbing or edema neurologic she is awake moving all 4 Test Results: [] Emergency Department Course and Treatment: [] She indicates the symptoms are related to eating she does not really have the pain when she does not eat, today the issue was after eating a small amount of food she began vomiting and she came in for evaluation she again has no real history there is nothing on physical exam or history to suggest DE PE DVT, given all the above a comprehensive evaluation will be pursued Labs are generally unremarkable see those reports except the hepatic panel shows slight elevation of liver enzymes, CT abdomen shows likely sludge in the gallbladder nothing else acute CBC unremarkable,, see the full lab panel Sent for ultrasound of the abdomen per radiology there appears to be's gallstones and sludge in the gallbladder there is no signs of acute cholecystitis on imaging or common bile duct stone obstruction or dilatation, see those reports, the patient has taking p.o. liquids here Serum viral hepatitis screen been sent it is not a stat return patient instructed to have that checked by her follow-up physicians All the test results to her the concept of biliary colic cholecystitis etc. she is remains asymptomatic she feels comfortable discharge home she is referred to [facility] airline reservation agent bland diet and she will return for change in symptoms Treatment Plan: [] Disposition: [] Stable Impression: [] Upper abdominal pain radiating to the right, suspect biliary colic, gallstones and sludge seen on imaging studies This note was generated with [employer]ool[employer] dictation software. It may contain incorrect words, spelling, and punctuation that were not noted in review of the chart prior to signing ED Disposition - Plan for ED Patient: Chief Complaint: Abd Pain Instructions: ED Abdominal Pain Gallstone Poss Referrals: Tao Doyle MD [STAFF PHYSICIAN] - Pete Branham MD [STAFF PHYSICIAN] - Care Physician,No Primary [Primary Care Provider] - What to do if you have Problems For any increased pain, shortness of breath, bleeding, nausea or vomiting, chest pain, or any unexpected problems, contact your Primary Care Provider. Call [facility] ([phone]) or report to the closest Emergency Room. Call 911 if necessary. 09/06/17 1754 <Electronically signed by Gabrielle Espinoza MD> Date Gabrielle Espinoza MD Cosigner Signature (If Indicated): Date CC: No Primary Care Physician DISCHARGE INSTRUCTION Observed: 09/06/2017 Status: F Source: KARIN 2:39 PM [facility] REPOSITORY [facility] Medical Records Department [address] [place] [address] Discharge Instruction 09/06/17 1437 MR#: [id number] Acct: [id number] Name: JASMIN OLIVERA Rep #: [id number] : 1990 27 From: Gabrielle Espinoza MD PCP: Tez Physician, No Primary Status: REG ER ED Disposition - Plan for ED Patient: Chief Complaint: Abd Pain Instructions: ED Abdominal Pain Gallstone Poss Referrals: Care Physician,No Primary [Primary Care Provider] - Pete Branham MD [STAFF PHYSICIAN] - Tao Doyle MD [STAFF PHYSICIAN] - What to do if you have Problems For any increased pain, shortness of breath, bleeding, nausea or vomiting, chest pain, or any unexpected problems, contact your Primary Care Provider. Call [facility] ([phone]) or report to the closest Emergency Room. Call 911 if necessary. 09/06/17 1439 <Electronically signed by Gabrielle Espinoza MD> Date Gabrielle Espinoza MD Cosigner Signature (If Indicated): Date CC: No Primary Care Physician GALLBLADDER Observed: 09/06/2017 Status: F Source: KARIN 11:38 AM [facility] REPOSITORY [facility] Imaging Services [address] [address] Gallbladder MR#: [id number] Acct: [id number] Name: JASMIN OLIVERA Rep #: [id number] : 1990 F 27 From: Elver Sommer MD PCP: Care Physician, No Primary Status: REG ER Study: Gallbladder Date of Exam: 09/06/17 Exam# [id number] Ordering Dr: Gabrielle Espinoza MD STUDY: ABDOMINAL ULTRASOUND - RIGHT UPPER QUADRANT REASON FOR VISIT: Female, 27 years old. Right upper quadrant pain. TECHNIQUE: Ultrasound evaluation of the right upper quadrant was performed with real-time and static rucker-scale imaging. TECHNICAL QUALITY: Adequate. Examination limited by bowel gas. COMPARISON: CT abdomen and pelvis 0929 hours. FINDINGS: Liver: The liver measures 14.0-18.0 cm, depending on point of reference There is normal echogenicity of the liver. The bile ducts are within normal limits. There is hepatic color flow. The direction of portal flow is hepatopetal. There is no demonstrated mass lesion. Gallbladder: Normal distended gallbladder. The gallbladder wall measures 1.3 mm. There is a negative sonographic Barrett's sign. There is no pericholecystic fluid. There are multiple echogenic structures within the gallbladder, consistent with multiple gallstones. Additional echogenic sludge is also present. Common Bile Duct (C.B.D.): The common bile duct measures 4.6 mm. Pancreas: Normal size of the head, body and tail of the pancreas. There is normal echogenicity of the pancreas. There is no demonstrated pancreatic mass or cyst. Right Kidney: Normal size of the right kidney. The right kidney measures 10.9 x 5.3 x 3.8 cm. Normal renal cortex. The right cortex measures 1.3 cm. There is no demonstrated renal mass or cyst. There is no right hydronephrosis. US/Gallbladder IMPRESSION: Numerous small gallstones as well as sludge in the gallbladder lumen. No sign of acute cholecystitis or bile duct obstruction. Electronically Signed: Eleazar Sommer MD at 14:19 EST , Service support , CC: MD Davis Espinoza; No Primary Care Physician Graphics Edit Technician: Signed HEPATITIS PANEL ACUTE Collected: 09/06/2017 Status: F Source: KARIN 11:35 AM [facility] REPOSITORY TYPE CODE TESTS RESULT OUT OF RANGE REFERENCE UNITS LAB L3100.0200 Negative Normal HEP A Negative IgM 6734 LAB L3100.0400 Negative Normal HB Negative SURF AG LAB L3100.0440 Negative Normal HB Negative CORE [id number] LAB L3100.0650 0.0-0.9 s/co ratio Normal HEP C 0.1 AB Result Comment: Negative: < 0.8 Indeterminate: 0.8 - 0.9 Positive: > 0.9 The CDC recommends that a positive HCV antibody result be followed up with a HCV Nucleic Acid Amplification test (508283). Performed at: [facility] [id number] Home Health Care Physician: Dominguez Montoya PhD, Phone: [phone] Performed By: #### L3000.0375 #### [facility] (refer to report for specific site) refer to report for address and phone number URINALYSIS, COMPLETE Collected: 09/06/2017 Status: F Source: KARIN 10:53 AM [facility] REPOSITORY Order Comment: Order Date: 09/06/17 How was Urine Obtained? CLEAN CATCH TYPE CODE TESTS RESULT OUT OF RANGE REFERENCE UNITS LAB L400.3000 Yellow COLOR Normal Yellow LAB L400.3050 Clear Normal CLARITY Clear LAB L400.3200 Normal mg/dl Normal GLUCOSE, UR Normal LAB L400.3300 Negative mg/dL Normal BILIRUBIN URINE Negative LAB L400.3400 Negative mg/dl Normal KETONE UR Negative LAB L400.3465 1.002-1.030 Normal SP.GR. DIPSTX 1.010 LAB L400.3550 5.0 - 8.0 pH UR Normal 8.0 LAB L400.3600 Negative mg/dl PROT Normal DIPSTX Negative LAB L400.3700 Normal mg/dl Normal UROBILI Normal LAB L400.3750 Negative Normal NITRITE UR Negative LAB L400.3780 Negative /ul High 10 OCCULT BLOOD-UR LAB L400.3800 Negative /ul High LEUK ESTERASE 100 LAB L400.4050 0-5 /hpf WBC Normal 0-5 SEEN LAB L400.4100 0-5 /hpf Normal RBC-UA 0-5 SEEN LAB L400.4150 5-10 /hpf SQUAM 0 Normal EPI SEEN LAB L400.4300 None Seen /hpf 0 Normal BACTERIA SEEN LAB L400.4350 <or=2+ /hpf 0 Normal MUCUS, URINE SEEN Performed By: #### L400.0001 #### [facility] [address] [place], [address] CBC W/DIFF, AUTOMATED Collected: 09/06/2017 Status: F Source: CAB[place] 8:55 AM [facility] REPOSITORY TYPE CODE TESTS RESULT OUT OF RANGE REFERENCE UNITS LAB L100.1000 4.4-11.0 K/mm3 Normal WBC 5.2 LAB L100.1200 4.2-5.4 M/mm3 Normal RBC 4.45 LAB L100.1300 12.0-15.0 g/dl Normal HGB 13.9 LAB L100.1400 37-47 % Normal HCT 40.2 LAB L100.1500 81-99 fL Normal MCV 90.3 LAB L100.1600 27.0-32.0 pg Normal MCH 31.2 LAB L100.1700 32-36 g/gl Normal MCHC 34.6 LAB L100.1810 11.6-14.6 % Normal RDW CV 12.2 LAB L100.1820 35.1-43.9 fl Normal RDW SD 39.5 LAB L100.1900 150-450 K/mm3 Normal PLT 294 LAB L100.2000 6.2-12.0 fl Normal MPV 10.7 LAB L100.2100 47-70 % High NEUT% 70.1 LAB L100.2200 19-41 % Normal LY% 21.1 LAB L100.2300 0-10 % Normal MONO% 6.4 LAB L100.2400 0-5 % Normal EO% 1.2 LAB L100.2500 0-1 % Normal BASO% 1.0 LAB L100.2550 0.0-0.9 % Normal IM GRAN % 0.200 Result Comment: IG% - Immature Granulocytes (promyelocytes, myelocytes and metamyelocytes) > 1% indicates that a LEFT SHIFT is Present. LAB L100.2620 2.0-7.7 X10 3/uL Normal Absolute Neut 3.6 LAB L100.2720 0.83-4.51 X10 3/ul Normal Absolute Lymph 1.09 Performed By: #### L100.0100 #### [facility] [address] [place], [address] BASIC METABOLIC Collected: 09/06/2017 Status: F Source: CAB[place]O PROFILE (BMP) 8:55 AM [facility] REPOSITORY TYPE CODE TESTS RESULT OUT OF RANGE REFERENCE UNITS LAB L501.0100 74-106 mg/dL High GLU 118 Result Comment: Fasting Glucose result from 100 to 125 mg/dL suggests IMPAIRED HOMEOSTASIS per A.D.A. criteria. Please note revised GLUCOSE reference range effective 2017. LAB L501.1000 7-18 mg/dL Normal BUN 17 LAB L501.1100 0.55-1.02 mg/dL High CREAT,SERUM 1.03 Result Comment: The validity of the calculated GFR AND GFRAA in patients over 70 years has not been determined. Clinical correlation is essential. LAB L501.1110 >60 mL/min Normal EST GFR 69 Result Comment: Non- GFR Calc LAB L501.1115 >60 mL/min Normal EST GFR - AA 83 Result Comment: GFR Calc LAB L501.1255 ml/min Normal Estimated CRCL 77.48 LAB L501.1300 10-20 RATIO Normal BUN/CRE 16.5 LAB L501.2200 8.5-10 mg/dL Normal .1 CA 9.3 LAB L501.5300 136-14 mmol/L Normal 5 NA 138 LAB L501.5600 3.5-5. mmol/L Normal 1 K 3.7 LAB L501.5900 98-107 mmol/L Normal CL 103 LAB L501.6100 21.0-3 mmol/L Normal 2.0 CO2 26.0 LAB L501.6200 5-15 Normal GAP 9 Performed By: #### L500.2500, L500.3400, L501.2450 #### [facility] [address] [place], [place], [id number] LIVER PROFILE Collected: 09/06/2017 Status: F Source: [place]O 8:55 AM [facility] REPOSITORY TYPE CODE TESTS RESULT OUT OF RANGE REFERENCE UNITS LAB L501.1500 6.4-8.2 g/dL High T PROT 8.6 LAB L501.1800 3.2-5.0 g/dL Normal ALB 4.0 LAB L501.1950 2.2-4.2 g/dL High GLOB 4.6 LAB L501.4100 15-37 U/L High AST 143 LAB L501.4305 45-117 U/L High ALK P 166 LAB L501.4405 13-56 U/L High ALT 192 Result Comment: Please note revised ALT reference range effective 2017. LAB L501.4600 0.20-1.00 mg/dL Normal T BILI 0.80 LAB L501.4700 0.00-0.30 mg/dL High D BILI 0.34 Performed By: #### L500.2500, L500.3400, L501.2450 #### [facility] [address] [facility] [place], [place], [id number] LIPASE Collected: 09/06/2017 Status: F Source: [place]O 8:55 AM [facility] REPOSITORY TYPE CODE TESTS RESULT OUT OF RANGE REFERENCE UNITS LAB L501.2450 73-393 U/L Normal LIPASE 217 Performed By: #### L500.2500, L500.3400, L501.2450 #### [facility] [address] [place], [place], [address] ,SERUM,HCG QUALI. Collected: Status: P Source: [place]O 09/06/2017 8:55 AM [facility] REPOSITORY TYPE CODE TESTS RESULT OUT OF REFERENCE UNITS RANGE LAB L700.7000 0-9 Nonpreg Negative Normal HCGSQUAL NEGATIVE Performed By: #### L700.6800 #### [facility] [address] [place], [address] ABDOMEN/PELVIS WITHOUT Observed: 09/06/2017 Status: F Source: KARIN CONT 8:44 AM [facility] REPOSITORY [facility] Imaging Services [address] [place] [address] Abdomen/Pelvis without Cont MR#: [id number] Acct: [id number] Name: JASMIN OLIVERA Rep #: [id number] : 1990 F 27 From: Elver Sommer MD PCP: Care Physician, No Primary Status: REG ER Study: Abdomen/Pelvis without Cont Date of Exam: 09/06/17 Exam# [id number] Ordering Dr: Gabrielle Espinoza MD STUDY: CT ABDOMEN AND PELVIS WITHOUT CONTRAST REASON FOR EXAM: Female, 27 years old. Right upper quadrant pain. RADIATION DOSAGE (If Supplied By Facility): CTDIvol = ( 10.25 ) mGy, DLP = ( 532.52 ) mGycm TECHNIQUE: Transaxial images were obtained from the dome of the diaphragm to the symphysis pubis without oral contrast, and without intravenous contrast. Sagittal and coronal images were reconstructed. Individualized dose optimization techniques were used for this CT. COMPARISON: None. FINDINGS: The visualized lung bases are unremarkable. The visualized portions of the heart are within normal limits. Normal liver. Dependent increased layering density in the gallbladder raises question of sludge. Normal spleen. Normal pancreas. Normal bilateral adrenal glands. Normal right kidney. Normal left kidney. No hydronephrosis. The stomach is filled with undigested food stuffs. Normal small intestine. Normal colon. The appendix is visualized and appears normal. Normal abdominal aorta. Normal inferior vena cava. Normal retroperitoneum. Normal urinary bladder. There is a T-shaped intrauterine device in the endometrial cavity of the normal-sized retroverted uterus. Mild heterogeneity in the adnexa consistent with normal follicular cysts. There is a small umbilical hernia containing fat. There are mild multilevel degenerative changes of the visualized spine. Degenerative sclerosis seen along the inferior right sacroiliac joint. CT/Abdomen/Pelvis without Cont IMPRESSION: 1. Question of sludge in the gallbladder. If suspicious, this can be further characterized with ultrasound. No sign of cholecystitis or overt bile duct obstruction. 2. The bowel is unremarkable without sign of obstruction. The appendix is normal. 3. No hydronephrosis. 4. T-shaped IUD in the endometrial cavity of the normal size, retroverted uterus. Unremarkable ovaries. 5. Small, fat-containing umbilical hernia. Electronically Signed: Eleazar Sommer MD at 10:33 EST , Service support , CC: MD Davis Espinoza; No Primary Care Physician Graphics Edit Technician: Signed ALLERGIES ALLERGIES DATE TYPE / CODE NAME / CODE REACTION SEVERITY SOURCE 09/22/2017 Drug No Known Unknown Karin [facility] Allergy/4160 Allergies/F00 Hospital 79004(SNOMED 7475495(RXNOR Repository CT) M) ENCOUNTERS ENCOUNTERS ADMIT/DISCHARGE ACCOUNT ADMITTING ENCOUNTER LOCATION SOURCE NUMBER CLASS 08/11/2018 [id number] Ambulatory [place]in [place] 1 [facility] ing:[facility] Repository 09/22/2017/ [id number] Ambulatory BMSBuilding:B [place] [facility] 0 [facility] Repository 09/12/2017/ [id number] Ambulatory [place] 8 8 [facility] ing:[facility] Repository 09/12/2017 [id number] Ambulatory BMSBuilding:W [place] 8 [facility] Repository 09/12/2017 [id number] Ambulatory BMSBuilding:B [place] 6 [facility] Repository 09/10/2017/ [id number] Ambulatory BMSBuilding:B [place] 8 2 [facility] Repository 09/06/2017/ [id number] Emergency [place] 8 6 [facility] ing:ED Repository PAYERS PAYERS ENCOUNTER GUARANTOR PAYER SUBSCRIBER SOURCE 08/11/2018 JASMIN [id number] Primary JASMIN [place] Insurance:SANKET STOVALLOB: [facility] [id number] Hospital [address]Ftu: (614) PLANPolicy Number: Repository [phone] () [id number] Date:[id number] [address] [place] [address] [place] [address]: 08/11/2018 Secondary NOT GIVENUNK [place] Insurance:SELF PAY [facility] Hospital Number: Effective Repository Date:2018-08-11 09/22/2017 JASMIN [id number] Primary JASMIN [place] Insurance:SANKET STOVALLOB: [facility] [id number] Hospital [address]Wwp: ([phone]) PLANPolicy Number: Repository [phone] () [id number] Date:0205-60-81PY [address] [place] [address]ST: 09/22/2017 Secondary NOT GIVENUNK [place] Insurance:SELF PAY [facility] Hospital Number: Effective Repository Date:2017-09-15 09/12/2017 JASMIN [id number] Primary JASMIN [place] Insurance:SANKET STOVALLOB: [facility] [id number] Hospital [address]Wxr: (614) PLANPolicy Number: Repository [phone] () [id number] Date:[id number] [address] [place] [address]88[address]PF: 09/12/2017 Secondary NOT GIVENUNK [place] Insurance:SELF PAY [facility] Hospital Number: Effective Repository Date:2017-09-11 09/12/2017 JASMIN [id number] Primary JASMIN [place] Insurance:SANKET STOVALLOB: [facility] [id number] Hospital [address]Rpv: (614) PLANPolicy Number: Repository [phone] () [id number] Date:3078-27-88US [address] [place] [address]OV: 09/12/2017 Secondary NOT GIVENUNK [place] Insurance:SELF PAY [facility] Effective Repository Date:2017-09-12 09/12/2017 JASMIN [id number] Primary JASMIN Kar[place] Insurance:SANKET STOVALLOB: [facility] [id number] Hospital [address]Esr: (614) PLANPolicy Number: Repository [phone] () [id number] Date:[id number] [address] [place], [place] [address]BENJI 90[address]YK: 09/12/2017 Secondary NOT GIVENUNK [place] Insurance:SELF PAY [facility] Number: Effective Repository Date:2017-09-12 09/10/2017 JASMIN [id number] Primary JASMIN [place] Insurance:SANKET STOVALLOB: [facility] [id number] Hospital [address]Iut: ([phone]) PLANPolicy Number: Repository [phone] () [id number] Date:[id number] [address] [place], [place] [address]BENJI 140[address]PI: 09/10/2017 Secondary NOT GIVENUNK [place] Insurance:SELF PAY [facility] Number: Effective Repository Date:2017-09-08 09/06/2017 Jasmin Steeleen6015 Primary Jasmin Karin [place] Insurance:SANKET StovallOB: [facility] [id number] Hospital [address]Qji: (614) PLANPolicy Number: Repository [phone] () [id number] Date:[id number] [address] [place], [place] [address]BENJI [place] [address]FU: 09/06/2017 Secondary NOT GIVENUNK [place] Insurance:SELF PAY [facility] Hospital Number: Effective Repository Date:2017-09-06
== END ==
PROVIDERS: Visit Provider Obstetrics & Gynecology
DX: Z12.4 Encounter for screening for malignant neoplasm of cervix (principal)
CPT/HCPCS: 88175; G0145

== ENCOUNTER → 2019-11-04 17:37 | Outpatient (CLI) | payer MEDICAID, SELFPAY ==
[2017-09-12 11:06] VITALS: BMI 29.8
[2019-11-04 20:33] LABS: Chlamydia Trachomatis by PCR Negative (Negative); Neisserai gonorrhoeae by PCR Negative (Negative); Probe Check PASS; Sample Adequacy Control PASS; Specimen Processing Control PASS
== END ==
PROVIDERS: Visit Provider Obstetrics & Gynecology
DX: Z32.01 Encounter for pregnancy test, result positive (principal); R30.0 Dysuria
CPT/HCPCS: 87086; 87088; 87491; 87591

== ENCOUNTER → 2019-11-25 17:29 | Outpatient (CLI) | payer MEDICAID, SELFPAY ==
[2019-11-25 18:24] LABS: Absolute Lymphocyte Count 1.64 X10^3/uL (0.83-4.51); Absolute Neutrophil Count 6.3 X10^3/uL (2.0-7.7); Basophil# 0.02 X10^3/uL; Basophil% 0.2 % (0-1); Eosinophil# 0.02 X10^3/uL; Eosinophils% 0.2 % (0-5); Hematocrit 39.4 % (37-47); Hemoglobin 13.2 g/dL (12.0-15.0); Lymphocyte # 1.64 X10^3/ul (4.0); Lymphocyte % 19.7 % (19-41); Mean Corp Hgb Conc 33.5 g/dL (32-36); Mean Corpuscular Hgb 31.2 pg (27.0-32.0); Mean Corpuscular Volume 93.1 fL (81-99); Monocyte# 0.36 X10^3/uL; Monocyte% 4.3 % (0-10); NRBC Flagged by Analyzer 0 % (0-5); Neutrophil # 6.25 X10^3/uL (2.7-7.7); Neutrophil % 75.2 % (47-70); Platelet Count 274 K/mm3 (150-450); RBC Distribution Width CV 11.4 % (11.6-14.6); RBC Distribution Width SD 38.5 fl (35.1-43.9); Red Blood Count 4.23 M/mm3 (4.2-5.4); White Blood Count 8.3 K/mm3 (4.4-11.0)
[2019-11-25 19:10] LABS: Color, Urine Yellow (Yellow); Glucose, Dipstick Normal (Normal); Ketone-Dipstick Negative (Negative); Leukocyte Esterase-Dipstick 100 /ul (Negative); Nitrite-Dipstick Negative (Negative); Occult Blood-Urine Negative /ul (Negative); Protein-Dipstick Negative (Negative); Urine Bilirubin Dipstick Negative (Negative); Urine Clarity Sl. Cloudy (Clear); Urine Urobilinogen Normal (Normal); Urine pH 6.5 (5.0 - 8.0)
[2019-11-25 19:19] LABS: Thyroid Stim Hormone (TSH) 0.81 uIU/mL (0.358-3.74)
[2019-11-26 07:31] LABS: HIV - WCH Non-Reactive (Nonreactive); Hepatitis B Surface Antigen Non-Reactive (Nonreactive); Hepatitis C Antibody Non-Reactive (Nonreactive); Rubella IgG 198.9 IU/mL
[2019-12-02 02:30] LABS: Prenatal RPR NONREACTIVE (NONREACTIVE)
== END ==
PROVIDERS: Visit Provider Obstetrics & Gynecology
DX: Z34.81 Encounter for supervision of other normal pregnancy, first trimester (principal)
CPT/HCPCS: 81002; 84443; 85025; 86703; 86762; 86803; 87340

== ENCOUNTER → 2020-04-12 10:20 | Outpatient (CLI) | payer MEDICAID, SELFPAY ==
[2017-09-12 11:06] VITALS: BMI 29.8
[2020-04-12 10:59] LABS: Hematocrit 36.5 % (37-47); Hemoglobin 12.1 g/dL (12.0-15.0); Mean Corp Hgb Conc 33.2 g/dL (32-36); Mean Corpuscular Hgb 31.2 pg (27.0-32.0); Mean Corpuscular Volume 94.1 fL (81-99); Platelet Count 268 K/mm3 (150-450); RBC Distribution Width CV 12.6 % (11.6-14.6); RBC Distribution Width SD 42.9 fl (35.1-43.9); Red Blood Count 3.88 M/mm3 (4.2-5.4); White Blood Count 9.6 K/mm3 (4.4-11.0)
[2020-04-12 11:26] LABS: Glucose Challenge Gest 1H 50g 134 mg/dL (70-140)
== END ==
PROVIDERS: Visit Provider Obstetrics & Gynecology
DX: Z34.83 Encounter for supervision of other normal pregnancy, third trimester (principal)
CPT/HCPCS: 36415; 82950; 85027

== ENCOUNTER → 2020-06-12 16:30 | Outpatient (CLI) | payer MEDICAID, SELFPAY ==
[2017-09-12 11:06] VITALS: BMI 29.8
== END ==
PROVIDERS: Visit Provider Obstetrics & Gynecology
DX: Z36.85 Encounter for antenatal screening for Streptococcus B (principal)
CPT/HCPCS: 87081

== ENCOUNTER 2020-06-22 03:40 | Inpatient (IN) | payer MEDICAID, SELFPAY ==
[2017-09-12 11:06] VITALS: BMI 29.8
[2020-06-22] VITALS (23 sets, daily range): BP systolic 108–133; BP diastolic 59–78; PULSE 80–102; RESP 18; TEMP 36.4–37.4; O2SAT 94–100; BMI 35.4
[2020-06-22 03:43] LABS: ROM Internal Control Test YES-OK TO RESULT pt. (Internal QC)
[2020-06-22 03:44] LABS: ROM Patient Test POSITIVE (Negative)
[2020-06-22 04:26] LABS: Absolute Lymphocyte Count 1.75 X10^3/uL (0.83-4.51); Absolute Neutrophil Count 6.5 X10^3/uL (2.0-7.7); Basophil# 0.03 X10^3/uL; Basophil% 0.3 % (0-1); Eosinophil# 0.07 X10^3/uL; Eosinophils% 0.8 % (0-5); Hematocrit 36.9 % (37-47); Hemoglobin 12.5 g/dL (12.0-15.0); Lymphocyte # 1.75 X10^3/ul (4.0); Lymphocyte % 19.4 % (19-41); Mean Corp Hgb Conc 33.9 g/dL (32-36); Mean Corpuscular Hgb 30.9 pg (27.0-32.0); Mean Corpuscular Volume 91.1 fL (81-99); Mean Platelet Vol. 11.2 fl (6.2-12.0); Monocyte# 0.59 X10^3/uL; Monocyte% 6.5 % (0-10); NRBC Flagged by Analyzer 0 % (0-5); Neutrophil # 6.46 X10^3/uL (2.7-7.7); Neutrophil % 71.8 % (47-70); Platelet Count 242 K/mm3 (150-450); RBC Distribution Width CV 13.2 % (11.6-14.6); RBC Distribution Width SD 43.7 fl (35.1-43.9); Red Blood Count 4.05 M/mm3 (4.2-5.4)
[2020-06-22] MEDS: Lactated Ringers 1,000 ML 50 ML IV (04:32)
--- NOTE | 2020-06-22 05:45 | HP.PCM_ITS ---
History and Physical Date of Admission: 06/22/20 [facility] [place] [facility]TE[facility] RECORD - HISTORY AND PHYSICAL (06/22/2020) Name: JASMIN ARROYO History of This : This is a 30-year-old 3 para 2 who presents to labor and delivery in active labor at 38+ weeks with gross rupture of membranes. care has otherwise been uneventful. She does have a history of fast labors. OB Physician: AMISHA 's Physician: Ct Wilkinson.................................................................. : 1990 Age: 30 [address]: [address] [place] [address] Phone: (h) [phone] ([phone] Insurance Carrier: [facility] [phone] Emergency Contact: LYLE CORBIN/MOTHER [phone] ...................................................................... Final HUGO: 07/05/20 By Ultrasound: 6 weeks 6 days PARITY: (G-Total Pregnancies P-Fullterm,Premature,Induced AB,Spont AB, Ectopics, Multiple,Living) HUGO CONFIRMATION: By LMP: 09/24/19 Final HUGO: 07/05/20 OB PROBLEM LIST: Declines AFP and CF tests. has a daughter from a previous relationship Nausea, Vomiting, Constipation 1st Trimester Zofran, Phenergan, Colace Rapid labors 5 hrs, 3 hrs ALLERGIES: NKA No Known Drug Allergies MEDICATIONS: Pepcid 20 mg tablet 1 PRN Tablet 28 mg iron-800 mcg One tablet by mouth once daily Unisom (doxylamine) 25 mg tablet 1 PO QD Vitamin B-6 50 mg capsule 1 PO BID SOCIAL HISTORY: Smoking - Never Alcohol Use - RARELY not while Diet - balanced Diet, caffeine < 2 drinks per day and trying to drink water. Enc to one gal day. Lifestyle - moderate stress lifestyle and Exercise - active Employer - Unemployed Job Description - Housewife Illicit Drug Use - denies use of street drugs Sexual Activity - Residence - lives with Place of - [place], [place] Spouse-Sig Other Name - Dean Arroyo Spouse-Sig Other Occupation - [email or web address] Spouse-Sig Other Phone No - [phone] (cell) Children Name(s) - Robbie (JW) 2014, Shahriar 2016 (EB) PRIOR DELIVERY HISTORY DEL DATE GEST LAB WT LB WT OZ TYPE ANES LABOR TX ____ 15 Jun 06 38 3 7 10 Vag None No Apr 04 38 5 9 0 Vag None No ANTEPARTUM FLOW CHART VISIT RTC FU F F IA U U DATE WK MD WKS HT PN HR M SS BP ED WT IA GL D EF ST __ ____ ___ __ __ ___ __ __ __ ___ __ __ __ ___ __ 30 May JMW 1 38 V + + 138/88 sl 221 ne ne 4 75 -2 May JM 1 36 V + + 112/78 sl 219 tr - 4 60 -3 May JM 1 36 V + + 121/82 sl 220 tr - 2 60 -2 04 May JMW 2 34 + + 102/78 sl 216 tr - 2+ 25 -2 May 20 JMW 3 31 + + 100/60 0 214 tr - 23 Apr 17 JMW 3 28 + + 112/70 0 209 - tr Mar 13 JMW 4 24 + + 120/76 tr 205 - - Feb 06 JMW 4 20 + US 114/68 0 198 - - 08 Feb 03 JMW 2 17 + ? 114/66 0 194 ne ne Dec 30 CH 4 + O 120/90 0 191 - - November 25 JMW 4 U+ US 124/76 0 188 - - ANTEPARTUM NOTE(S): Jun 19 2020: Jun 12 2020: see note Jun 06 2020: see prog note May 24 2020: see note, no ctxs, no discharge, good FM May 03 2020: feeling well. Apr 12 2020: One Hr PG today Mar 15 2020: Occ. Low Pressure,Glucola/Instructions Given Feb 16 2020: US OK Jan 26 2020: see note, Declines AFP Dec 23 2019: Concerned about weight, having less N/V. Nov 25 2019: Nausea & Vomiting Daily,Sono Today COMPREHENSIVE ANTEPARTUM NOTE(S): Jun 21 2020: H taken to OB. tkg Jun 19 2020: Jasmin is here for PNV, States she feels fine with no complaints. Noticing an occ CTX. Having a mucousy vag discharge but no LOF. Good FM. Slight edema noted and states it increases by end of day. Urine dipped neg and neg. LSS Jun 12 2020: Jasmin is here for visit. She is doing well, no complaints. Reviewed FM, GBS today, labor, SROM. She declines LARC ?IUD placement after delivery but would like this at 6 week ck. LMT Jun 12 2020: 36wk, GBS collected today. JM Jun 06 2020: Jasmin is here today for concerns regarding increased pelvic pressure. Patient denies any leaking of fluid, no bleeding no spotting. Patient states that she has FM but feels that maybe they have slowed. Does feel she is having 10 movement in 10 hours. Patient has h/o rapid deliveries with last two pregnancies and concerned that she might be going into labor and would go quickly. jlb Jun 06 2020: 35wk add on visit for pelvic cramping. CE 2-3/60/-2, unchanged from 34wk check. For GBS at next visit. JM May 24 2020: Jasmin is being seen for PNV. Pt is 34 weeks. Pt states she has sharp pains in pelvic area. She states otherwise she has throbbing and is uncomfortable. Pt request cervix check today due to being worried about early dilation. AM Apr 12 2020: Jasmin is her for PNV today. She is doing good, no morning sickness some dizziness. Good FM. States that she has dizziness in the mornings and it has been getting more frequent. She is more aware of her heart beat when she has the dizzy spells. She lays down for 1/2 hr then the dizziness goes away. She is taking antiacids 1 qd. No other questions or concerns expressed today. [facility] Feb 15 2020: Jasmin is her for PNV today. She is doing good, no morning sickness some nausea. Good FM, US today. No edema. She expressed interest in seeing a chiropractor wants to know if this is something she can do. Medications and allergies reviewed today. No other questions or concerns expressed today. [facility] Jan 25 2020: Jasmin is her for PNV today. She is doing good, no morning sickness. No edema. She thinks that she feels FM. Medications and allergies updated today. [facility] Dec 22 2020: (m,m,*) Routine PNV with R today 1598. States nausea is starting to get better at the end of her 1st trimester. Hx of precip labors x2 and larger babies so will watch growth closely. States understanding. Has no questions or concerns today. To return in 4 weeks for routine PNV with JW. - JAKOB November 25 2020: NOB TELEVISIT...... Jasmin is a 29 yr old Gr3, P2 currently 8 wks 2 days, and living w/her and their 2 sons. Her has a daughter from a previous relationship, who lives w/her mother. She is a stay at home mom, is working. Reviewed COVID precautions. States she is coping and denies Sx Depression or Anxiety. Some days more stressful than others dealing w/2 pre- shoolers and 1st Trimester nausea and vomiting. Advised to call if Sx Depression develop. Alternating use of Zofran and Phenergan. Last week had issues w/constipation, but is a little better this week. Still has been 3 days without a BM and feeling crampy from this as she feels she needs to have a BM; taking Colace BID. She has glycerin suppositories on hand and discussed how to use them. Cautioned not to wait as stool will only get harder the longer remains in the body. She feels the best in the mornings and that is when she tries to drink at least 6 cups water before noon, but after that she doesn't drink much at all. Reviewed taking frequent sips even during nausea as dehydration will only make nausea worse. Can try room temp or even slightly warm water -- some women find this is better tolerated than ice water. Anything clear is ok, would avoid colored drinks with dyes and other additives. But if this is not working, getting some fluids in is better than nothing. To call if not able to tolerate po fluids. Reviewed nutrition, limiting wt gain to 20-25 #. Reviewed importance of taking a daily walk for exercise and will also help w/stress relief. 2 's prior, rapid labors, 5 hrs and 3 1/2 hrs respectively, no epidurals. Hx Cholecystectomy, no other abdominal surgeries. No Hx IPV. supportive. Nothing significant in genetics Hx. Declines genetic testing. Non-smoker. No use of street drugs or ETOH. PN labs done. Preg. Hx and chart updated. kbm Nov 25 2019: Jasmin presents here today for Sono,and PNV. Reports she has lost 7 lbs. since last visit as she has had nausea/vomiting daily with use of Promethazine and Zofran. Constipation is an issue as well. She is filling out her forms today for her Telehealth NOB visit tomorrow. DANNY NEW Nov 04 2019: Jasmin is a 29 yr old Gr3, P2, here for Missed Menses. She is and lives w/her and their 2 children. Monthly periods q 24-25 dayts. By LMP 09/24/19, she would be apprx 5 wks 5 days, HUGO 06/30/20. No spotting. She has had intermittent cramping, fairly significant on Easter. Long dip UA showing 1.020, ph 6.5, rest is negative. --- sent for C+S. Reporting breast tenderness. She is not working, using COVID precautions. 2 's prior. Hx Cholecystectomyt. Non-smoker. Last pap 07/2018. GC/Chlamydia cultures today. informational materials given and reviewed otc meds ok to take. NO NSAIDS> kbm Nov 04 2019: ok REVIEW OF SYSTEMS: GENERAL - Denies fever, or chills SKIN - Denies rash, new skin lesions, or change in moles EYES - Denies blurred vision, or change in visual acuity EARS - Denies ear pain, or difficulty hearing NOSE - Denies nasal congestion, discharge, or bleeding MOUTH - Denies sore throat, or difficulty swallowing NECK - Denies pain or swelling RESPIRATORY - Denies shortness of breath, cough, wheezing CARDIOVASCULAR - Denies palpitations, chest pain, orthopnea, PND, peripheral edema, syncope or claudication GASTROINTESTINAL - Denies nausea, vomiting, diarrhea, constipation, Denies abdominal pain, melena and or bright red blood GENITOURINARY - Denies dysuria, frequency of urination, urgency, or hesitancy MUSCULOSKELETAL - Denies joint or muscle pain, or back pain NEUROLOGICAL - Denies localized numbness, weakness, or tingling PSYCHIATRIC - Denies depression, anxiety, substance abuse or suicide attempts ENDOCRINE - Denies heat or cold intolerance, weight loss or gain, increasing thirst HEMATO-IMMUNOLOGIC - Denies easy bruising, bleeding, oral ulcerations or recurrent infections GENETICS SCREENING: Age 35+ years: No Thalassemia: No Neural Tube Defect: No Down Syndrome: No LATOSHA-SACHS: No Sickle Cell Disease: No Hemophilia: No Musc. Dystrophy: No Cystic Fibrosis: No-declines screening [place] Chorea: No Mental Retardation: No Fragile X: No Other genetic: No Other defects: No SABs/still births: No Drugs since LMP: Yes INFECTION HISTORY: High risk AIDS: No High risk Hepatitis: No Exposed to TB: No Exposed to Herpes: No Rash/viral illness since LMP: No History of STD: No MENSTRUAL HISTORY: *Menses Amount/Duration: 5 daysFrequency: monthlyMenarche (Age Onset): 13* PAST SUMMARY: PARITY: 1. Total Pregnancies............ 3 2. Full Term Pregnancies........ 2 3. Premature.................... 0 4. Abortions - Induced.......... 0 5. Abortions - Spontaneous...... 0 6. Ectopics..................... 0 7. Multiple Births.............. 0 8. Living Children.............. 2 PAST #1: Date of :.................. 04/18/15 Gestation Weeks:................ 38 Length of labor(hours):......... 5 Sex:............................ M Weight-lbs:............... 9 Weight-oz:................ 0 Type of Delivery:............... Vag Type of Anesthesia:............. None Place of Delivery:.............. [place] Treatment of Labor?:.... No Comment: RAPID LABOR PAST #2: Date of :.................. 06/04/17 Gestation Weeks:................ 38 Length of labor(hours):......... 3 Sex:............................ M Weight-lbs:............... 7 Weight-oz:................ 10 Type of Delivery:............... Vag Type of Anesthesia:............. None Place of Delivery:.............. [place] Treatment of Labor?:.... No Comment: RAPID LABOR PHYSICAL EXAMINATION General Appearence: 30 yo female in no acute distress Vital Signs: AF, VSS Heart: RRR without rubs or gallops Lungs: CTA x 2 Breasts: deferred Abdomen: gravid Pelvis: Cervix: 5 to 6 cm with forebag present Presentation: cephalic Station: -2 Fetus: Size: AGA Movement: present Heart: present Labs for : JASMIN ARROYO since 10/09/2019 ORDER DATEIN DESCRIPTION VALUE UNITS RANGE A+ COMMENT CULTURE, GROUP B STREPTOCOCCUS 06/12/20 NOTE Original Ordering Provider: Emmett Rosario BARAK Culture Group B Beta Streptococcus is not isolated. Reviewed by MAG GLUCOSE CHALLENGE GEST 1H 50G 04/12/20 NOTE w Original Ordering Provider: Mag Chyna GLU GEST 50G 1H 134 mg/dL 70-140 Reviewed by MAG CBC-COMPLETE BLOOD CNT NO DIFF 04/12/20 NOTE Original Ordering Provider: Mag Clemente WBC 9.6 K/mm3 4.4-11.0 RBC 3.88 M/mm3 4.2-5.4 L HGB 12.1 g/dL 12.0-15.0 HCT 36.5 % 37-47 L MCV 94.1 fL 81-99 MCH 31.2 pg 27.0-32.0 MCHC 33.2 g/dL 32-36 RDW CV 12.6 % 11.6-14.6 RDW SD 42.9 fl 35.1-43.9 PLT 268 K/mm3 150-450 MPV 11.0 fl 6.2-12.0 Reviewed by MAG RPR 11/25/19 NOTE Original Ordering Provider: Mag Clemente RPR NONREACTIVE NONREACTIVE Reviewed by MAG HEPATITIS C ANTIBODY 11/25/19 NOTE Original Ordering Provider: Mag Clemente HEPATITIS C AB Non-Reactive Nonreactive Non Reactive: < 0.8 Equivocal: >/= 0.8 to < 1.0 Reactive: >/= 1.0 The CDC recommends that a reactive/equivocal HCV antibody result be followed up by the HCV Nucleic Acid Amplification test ([id number]) Reviewed by MAG HEPATITIS B SURFACE ANTIGEN 11/25/19 NOTE Original Ordering Provider: Mag Clemente HEPB SURFACE AG Non-Reactive Nonreactive Reviewed by MAG HIV - [facility] 11/25/19 NOTE Original Ordering Provider: Mag Clemente HIV - [facility] Non-Reactive Nonreactive Reviewed by MAG RUBELLA IGG 11/25/19 NOTE Original Ordering Provider: Mag Clemente RUBELLA IGG 198.9 IU/mL Antibody results Interpretation of Immune Status < 5 IU/ml Presumed Non-immune 5 - < 10 IU/ml Equivocal > or = 10 IU/ml Presumed Immune Reviewed by MAG T AND S-NO CHARGE W/PNP 11/25/19 Reason for Type AND Screen/Red Cells: Surgery? [facility]~[address] [place], [address]~ BLOOD TYPE GEL B POSITIVE N AB SCREEN GEL NEGATIVE N Reviewed by MAG THYROID STIM HORMONE (TSH) 11/25/19 NOTE Original Ordering Provider: Mag [place] TSH 0.81 uIU/mL 0.358-3.74 Reviewed by MAG URINALYSIS, ROUTINE (DIPSTICK) 11/25/19 NOTE Original Ordering Provider: Mag Clemente COLOR Yellow Yellow CLARITY Sl. Cloudy Clear GLUCOSE, UR Normal mg/dl Normal BILIRUBIN URINE Negative mg/dL Negative KETONE UR Negative mg/dl Negative SP.GR. DIPSTX 1.010 1.002-1.030 PH UR 6.5 5.0 - 8.0 PROT DIPSTX Negative mg/dl Negative UROBILI Normal mg/dl Normal NITRITE UR Negative Negative OCCULT BLOOD-UR Negative /ul Negative LEUK ESTERASE 100 /ul Negative H Reviewed by MAG CBC W/DIFF, AUTOMATED 11/25/19 NOTE Original Ordering Provider: Mag queen WBC 8.3 K/mm3 4.4-11.0 RBC 4.23 M/mm3 4.2-5.4 HGB 13.2 g/dL 12.0-15.0 HCT 39.4 % 37-47 MCV 93.1 fL 81-99 MCH 31.2 pg 27.0-32.0 MCHC 33.5 g/dL 32-36 RDW CV 11.4 % 11.6-14.6 L RDW SD 38.5 fl 35.1-43.9 PLT 274 K/mm3 150-450 MPV 12.0 fl 6.2-12.0 NEUT% 75.2 % 47-70 H LY% 19.7 % 19-41 MONO% 4.3 % 0-10 EO% 0.2 % 0-5 BASO% 0.2 % 0-1 IM GRAN % 0.400 % 0.0-0.9 IG% - Immature Granulocytes (promyelocytes, myelocytes and metamyelocytes) > 1% indicates that a LEFT SHIFT is Present. ABSOLUTE NEUT 6.3 X10 3/uL 2.0-7.7 ABSOLUTE LYMPH 1.64 X10 3/uL 0.83-4.51 NRBC, FLAGGED 0 % 0-[address]/[facility] BY PCR 11/04/19 NOTE Original Ordering Provider: Mag Clemente CHLAM TRAC PCR Negative Negative NG BY PCR Negative Negative Reviewed by ALONZO MELCHOR URINE 11/04/19 NOTE Original Ordering Provider: Mag Clemente Urine Culture Below infection level. ORGANISM 1: Mixed Gram Pos AND Gram Neg Org [place] Count 1000-10,000 Reviewed by MAG Impression /Plan: 38+ week intrauterine in labor with rupture of membranes and ROM plus test positive. Preparations in progress for delivery.
[2020-06-22] MEDS: Oxytocin 30 units/NS 500 ml 30 UNITS/500 ML IV.SOLN 334 UNITS IV (09:44)
--- NOTE | 2020-06-22 09:47 | OP.PCM_ITS ---
Vaginal Delivery Maternal Presentation: Active Labor, Spontaneous Rupture of Membranes Amniotic Membrane Rupture Type: Spontaneous at home Amniotic Fluid Description: Clear Final HUGO: 07/05/20 Final HUGO Source: US <20 weeks Gestational age: 38 Weeks and 1 Days Date of Procedure: 06/22/20 Pre-Operative Diagnosis: IUP Post-Operative Diagnosis: IUP Surgery/ Procedure Performed: Spontaneous Vaginal Delivery Type of Anesthesia: None Description of Procedure: Spontaneous vaginal delivery of a viable female with Apgars of 8/9 from an occiput anterior presentation with clear amniotic fluid and normal three- vessel placenta. True knot in the cord. No episiotomy or laceration. Sponges okay. Delivery physician: Josh Clemente MD. Presentation: Vertex Placental Delivery Description: Spontaneous Placenta Disposition: [facility] Cord Vessel Description: 3 Vessels Cord Entanglement: True Knot(s) - x 1 Estimated Blood Loss: 250 cc Infant A gender: Female (1 minute): 8 (5 minute): 9 Episiotomy Description: None Laceration: None Medications given after delivery: IV Pitocin Complications: None
--- NOTE | 2020-06-22 09:52 | DCINST_ITS ---
<Josh Clemente - Last Filed: 06/22/20 09:52> Discharge Diet: No Restrictions Discharge Activity: May Shower, May Take a Tub Bath May resume sexual activity in: 4-6 weeks Additional Activity Instructions:: Nothing in the vagina for 4-6 weeks. You may return to work/school in 6 weeks. Call your doctor if you observe: Fever of 101 or Higher, Inability to urinate, Inability to have a bowel movement, Using more than one pad per hour Additional Instructions: If you experience any of the following, contact your healthcare provider. * Bleeding that soaks a pad every hour for 2 hours * Fever 100.4 or higher * Unrelieved incision or abdominal pain * Swelling, redness, discharge or bleeding from your incision or episiotomy site * Your incision begins to separate * Problems urinating (including inability to urinate or burning while urinating). * Visual changes * Severe headache * Flu-like symptoms * Pain or redness in one of both of your breasts * Pain, warmth, tenderness or swelling in your legs, especially the calf area * Frequent nausea and vomiting * Symptoms of depression or anxiety If you experience any of the following, call 911 or go to the nearest Emergency Room. * Chest pain * Problems breathing * Seizure activity * Partial or complete paralysis of a body part, slurred speech, weakness or drooping of the face, or a sudden inability to walk or hold your balance Allergies/Adverse Reactions: Allergies No Known Allergies Allergy (Verified 09/22/17 10:42) Medications to take at Discharge Vits [Prenatabs FA] 1 tab PO DAILY 04/18/15 Doxylamine Succinate [Unisom] 25 mg PO DAILY 06/22/20 Famotidine [Pepcid] 40 mg PO BID 06/22/20 Vitamin B6 100 mg PO DAILY 06/22/20 Please Follow Up With: Josh Clemente MD - [phone] When: Call to make an appointment with your doctor in 6 weeks. Primary Care Physician: Care Physician,No Primary [Primary Care Provider] - Test Results: Test results from this visit will be discussed in further detail at your follow- up appointment, if applicable. <Emmett Rosario - Last Filed: 06/23/20 08:29> Additional Instructions: If you experience any of the following, contact your healthcare provider. * Bleeding that soaks a pad every hour for 2 hours * Fever 100.4 or higher * Unrelieved incision or abdominal pain * Swelling, redness, discharge or bleeding from your incision or epi siotomy site * Your incision begins to separate * Problems urinating (including inability to urinate or burning while urinating). * Visual changes * Severe headache * Flu-like symptoms * Pain or redness in one of both of your breasts * Pain, warmth, tenderness or swelling in your legs, especially the calf area * Frequent nausea and vomiting * Symptoms of depression or anxiety If you experience any of the following, call 911 or go to the nearest Emergency Room. * Chest pain * Problems breathing * Seizure activity * Partial or complete paralysis of a body part, slurred speech, weakness or drooping of the face, or a sudden inability to walk or hold your balance Test Results: Test results from this visit will be discussed in further detail at your follow- up appointment, if applicable.
[2020-06-22] MEDS: Acetaminophen 500 MG Tablet 1000 MG PO (11:34)
[2020-06-22] MEDS: 0.9% Saline Lock 10 ML Syringe IV (12:42)
[2020-06-23 00:15] VITALS: BP 120/68; PULSE 93
[2020-06-23 00:16] VITALS: BP 120/68; PULSE 93; RESP 18; TEMP 36.6
[2020-06-23 04:10] VITALS: BP 118/77; PULSE 77; RESP 18; TEMP 36.6
[2020-06-23 04:11] VITALS: BP 118/77; PULSE 77
[2020-06-23] MEDS: Ibuprofen 600 MG Tablet PO (04:13)
--- NOTE | 2020-06-23 08:27 | PN.OBGYN_ITS ---
- Physical Exam Vitals/I&O's: Vital Signs Temp Pulse Resp BP Pulse Ox 97.8 F 77 18 118/77 97 06/23/20 04:10 06/23/20 04:11 06/23/20 04:10 06/23/20 04:11 06/22/20 11:58 Oxygen Delivery Method Room Air Weight: 219 lb 5.759 oz Body Mass Index (BMI) 35.4 Intake and Output for Last 24 Hours 06/21/20 06/22/20 06/23/20 23:59 23:59 23:59 Intake Total 859.16 / 859.16 Output Total 1050 / 1050 Balance -190.84 / -190.84 General: Alert, Oriented x3, Cooperative, No apparent distress Oral: Moist Mucosa Neck: Supple, No JVD Abdomen: Bowel Sounds Present, Soft, Non Tender, Non-Distended, - - Fundus firm and below umbilicus Extremities: No clubbing, No cyanosis, No edema Neurological: Neuro grossly intact Psych/Mental Status: Normal Affect, Appropriate, Alert and oriented to time, place, person, mood and affect Microbiology Past 72 Hours 06/22/20 04:15 Mucosa - Nose SARS-CoV-2 Antigen (Rapid) - Final Current Medications Acetaminophen (Acetaminophen 500 Mg Tablet) 1,000 mg PO Q8H PRN PRN PRN Reason: Pain Score 1-3 Last Admin: 06/22/20 11:34 Dose: 1,000 mg Documented by: Bisacodyl (Bisacodyl 10 Mg Suppository) 10 mg RECTAL UD PRN PRN Reason: If no BM Dibucaine (Dibucaine 30 Gm Tube) 1 applic TOPICAL TID PRN PRN; Protocol PRN Reason: Discomfort Famotidine (Famotidine 20 Mg Tablet) 40 mg PO BID ROSARIO Last Admin: 06/23/20 00:36 Dose: Not Given Documented by: Hydrocortisone (Hydrocortisone 2.5% Crm) 1 applic TOPICAL TID PRN PRN; Protocol PRN Reason: Discomfort Ibuprofen (Ibuprofen 600 Mg Tablet) 600 mg PO Q6H PRN PRN PRN Reason: Pain Score 1-3 Last Admin: 06/23/20 04:13 Dose: 600 mg Documented by: Methylergonovine Maleate (Methylergonovine 0.2 Mg/Ml Ampul) 0.2 mg IM X1 PRN PRN Reason: Excess bleeding/uterine atony Ondansetron HCl (Ondansetron 4 Mg/2 Ml Vial) 4 mg IV Q4H PRN PRN PRN Reason: Nausea Oxycodone HCl (Oxycodone 5 Mg Tablet) 5 - 10 mg PO Q4H PRN PRN PRN Reason: Pain Score 4-10 Senna/Docusate Sodium (Senna/Docusate Sodium 1 Tablet) 1 - 2 tablet PO DAILY PRN PRN PRN Reason: Constipation Simethicone (Simethicone 80 Mg Tablet) 80 mg PO PCHS PRN PRN Reason: Indigestion/Stomach pain Sodium Chloride (0.9% Saline Lock 10 Ml Syringe) 5 - 15 ml IV UD PRN PRN Reason: SALINE FLUSH Last Admin: 06/22/20 12:42 Dose: 10 ml Documented by: Zolpidem Tartrate (Zolpidem Tartrate 5 Mg Tablet) 5 mg PO QHS PRN PRN PRN Reason: Insomnia Medical Necessity - Tobacco Use Smoking Status: Never smoker Assessment/Plan All Active Problems (Last Reviewed 09/10/17 @ 14:[address] Tao Doyle MD) Calculus of gallbladder with acute on chronic cholecystitis without obstruction (Acute) day 1. Breast-feeding. Pain well controlled. 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
[2020-06-23 09:17] VITALS: BP 125/75; BP 128/75; PULSE 79; RESP 18; TEMP 36.6
== END 2020-06-23 12:20 | disposition home or self-care (01) | DRG 560 ==
LOC: OBT 03:41 → WP 03:41
PROVIDERS: Admitting Provider Obstetrics & Gynecology; Visit Provider Obstetrics & Gynecology
DX: O69.2XX0 Labor and delivery complicated by other cord entanglement, with compression, not applicable or unspecified (principal); Z37.0 Single live birth; Z3A.38 38 weeks gestation of pregnancy
CPT/HCPCS: 59025; 59050; 84112; 85025; 86850; 86900; 86901; 87426; 99218; J7120; 90686; A4216; G0378

== ENCOUNTER → 2020-08-03 14:57 | Outpatient (CLI) | payer MEDICAID, SELFPAY ==
[2020-06-22 03:33] VITALS: BMI 35.4
[2020-08-08 15:33] LABS: HPV Reflexed? NOT INDICATED
== END ==
PROVIDERS: Visit Provider Obstetrics & Gynecology
DX: Z12.4 Encounter for screening for malignant neoplasm of cervix (principal)
CPT/HCPCS: 88175; G0145